=== PATIENT | male | born 1975 | race Caucasian/White ===

== ENCOUNTER 2022-02-15 08:26 | Emergency (ER) | payer MEDICAID, OTHER ==
[~2022-02-15] VITALS: Ht 172.7 cm; Wt 75.0 kg
[2022-02-15 08:29] VITALS: BP 148/81
[2022-02-15] MEDS ORDERED: KETOROLAC 30MG/ML VIAL IM ONE (09:30)
[2022-02-15] MEDS ORDERED: ACETAMINOPHEN 325MG TABLET PO ONE (10:00)
== END 2022-02-15 11:11 ==
LOC: ER 08:26
DX: M54.50 Low back pain, unspecified (principal); F99 Mental disorder, not otherwise specified; Z98.1 Arthrodesis status
CPT/HCPCS: 72040; 72070; 72110; 99284; J1885